=== PATIENT | female | born 2000 | race Hispanic/Latino ===

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

== ENCOUNTER 2022-10-19 19:09 | Emergency (ER) | payer OTHER | END 2022-10-19 20:32 | disposition home or self-care (01) | LOC: ERS 19:09 | DX: R07.89 Other chest pain (principal); R51.9 Headache, unspecified; V86.59XA Driver of other special all-terrain or other off-road motor vehicle injured in nontraffic accident, initial encounter; Y92.410 Unspecified street and highway as the place of occurrence of the external cause | CPT/HCPCS: 71045 ==